=== PATIENT | female | born 1990 | race Caucasian/White ===

== ENCOUNTER 2024-10-27 16:11 | Emergency (ER) | payer OTHER ==
[~2024-10-27] VITALS: Ht 167.6 cm; Wt 91.0 kg
[2024-10-27 16:16] VITALS: O2SAT 95
[2024-10-27] MEDS ORDERED: MORPHINE SULFATE 4 MG/ML INJ (FOR IV/IM USE) IV ONE (16:30)
[2024-10-27 18:14] LABS: HEMATOCRIT. 47.5 % (36.0-48.0); HEMOGLOBIN. 15.4 g/dL (12.0-16.0); MEAN CORPUSCULAR HEMOGLOBIN 27.1 pg (28.0-32.0); MEAN CORPUSCULAR HGB CONC 32.5 g/dL (31.0-37.0); MEAN CORPUSCULAR VOLUME 83.2 fL (81.0-99.0); MEAN PLATELET VOLUME 8.4 fl (7.4-10.4); PLATELET 208 x1000/uL (130-400); RED CELL DISTRIBUTION WIDTH 13.6 % (11.6-14.6); WHITE BLOOD COUNT 14.3 x1000/uL (4.5-11.0)
[2024-10-27 18:15] LABS: CHLORIDE 94 mEq/L (98-107); POTASSIUM 3.6 mEq/L (3.5-5.1); SODIUM 130 mEq/L (136-145)
[2024-10-27 18:16] LABS: CARBON DIOXIDE 24 mEq/L (21-32)
[2024-10-27 18:17] LABS: CALCIUM 8.3 mg/dL (8.7-10.4); DIFFERENTIAL COMMENT 1
[2024-10-27 18:21] LABS: CREATININE 0.9 mg/dL (0.6-1.0); GLUCOSE 383 mg/dL (70-105)
[2024-10-27 18:22] LABS: UREA NITROGEN BLOOD 6 mg/dL (9-23)
[2024-10-27 18:23] LABS: ALANINE AMINOTRANSFERASE 92 IU/L (10-49); ALBUMIN 4.2 g/dL (3.2-4.8); ASPARTATE AMINOTRANSFERASE 45 IU/L (<34)
[2024-10-27 18:24] LABS: BILIRUBIN TOTAL 1.3 mg/dL (0.1-1.0); PROTEIN TOTAL 7.6 g/dL (6.0-8.3)
[2024-10-27 18:38] LABS: HCG SCREEN NEGATIVE
[2024-10-27 22:19] LABS: PLATELET ESTIMATE NORMAL
[2024-10-28] MEDS ORDERED: ONDA-239 PO (01:04)
[2024-10-28] MEDS ORDERED: IBUP-2029 MT (01:04)
[2024-10-28] MEDS ORDERED: LOPE2TAB26 MT (01:04)
[2024-10-28] MEDS ORDERED: HYDR-4001 MT (01:04)
[2024-10-28] MEDS ORDERED: FAMO-287 MT (01:04)
[2024-10-28] MEDS: KETOROLAC 30MG/ML VIAL IV ONE (01:15)
[2024-10-28] MEDS: MAGNESIUM/ALUMINUM HYDROXIDE/SIMETHICONE 30ML UDC PO ONE (01:15)
[2024-10-28] MEDS: SODIUM CHLORIDE 0.9% 1,000 ML IV ONE ×2 (02:11→03:03)
[2024-10-28] MEDS: MAGNESIUM/ALUMINUM HYDROXIDE/SIMETHICONE 30ML UDC PO NR (03:02)
[2024-10-28] MEDS: ONDANSETRON HCL 4MG/2ML INJ IV ONE (03:04)
[2024-10-28] MEDS: MORPHINE SULFATE 4 MG/ML INJ (FOR IV/IM USE) IV NR (03:48)
[2024-10-28] MEDS: KETOROLAC 30MG/ML VIAL IV NR (03:48)
[2024-10-28] MEDS: ONDANSETRON HCL 4MG/2ML INJ IV NR (03:48)
[2024-10-28 04:52] VITALS: BP 128/71; PULSE 74; RESP 20; TEMP 37.1; O2SAT 97
== END 2024-10-28 04:52 | disposition home or self-care (01) ==
LOC: ER 16:11
DX: R10.84 Generalized abdominal pain (principal); R11.2 Nausea with vomiting, unspecified; E11.65 Type 2 diabetes mellitus with hyperglycemia; Z90.49 Acquired absence of other specified parts of digestive tract; Z79.899 Other long term (current) drug therapy
CPT/HCPCS: 99285; 74176; 96374; 96375; 96361; 80053; 84703; 83690; 85025; 36415; J7030; J1885; J2405; J2270